=== PATIENT | female | born 1950 | race Caucasian/White ===

== ENCOUNTER 2023-10-03 00:13 | Emergency (ER) | payer SELFPAY ==
[~2023-10-03] VITALS: Ht 152.4 cm; Wt 50.0 kg
[2023-10-03 00:24] VITALS: TEMP 98.3; O2SAT 98
[2023-10-03 03:04] VITALS: BP 158/82; PULSE 88; RESP 14
== END 2023-10-03 03:12 | disposition home or self-care (01) ==
LOC: ER 00:13
DX: R04.0 Epistaxis (principal); I10 Essential (primary) hypertension
CPT/HCPCS: 99283